=== PATIENT | female | born 1985 | race Caucasian/White ===

== ENCOUNTER 2017-03-28 15:06 | Emergency (ER) | payer BC | END 2017-03-28 17:13 | disposition home or self-care (01) | LOC: ER 15:06 | DX: H66.91 Otitis media, unspecified, right ear (principal); J02.9 Acute pharyngitis, unspecified; R50.9 Fever, unspecified; R05 Cough; J34.89 Other specified disorders of nose and nasal sinuses; Z79.899 Other long term (current) drug therapy | CPT/HCPCS: 87070; 87400; 87880; 99283 ==